=== PATIENT | female | born 1990 | race Caucasian/White ===

== ENCOUNTER 2020-11-18 21:08 | Emergency (ER) | payer OTHER, SELFPAY ==
[2020-11-18 21:13] VITALS: BP 125/73; PULSE 84; RESP 16; TEMP 36.6; O2SAT 99; BMI 34.7
--- NOTE | 2020-11-18 21:49 | ED_ITS ---
HPI - Psych General Chief Complaint: Psychiatric Symptoms Stated Complaint: crisis Time Seen by Provider: 11/18/20 21:15 Source: patient Mode of arrival: EMS History of Present Illness HPI Narrative: This is a 30-year-old female who denies any significant past medical history and states that she is unsure whether not she may have shot her son or her mother. She then goes on to say that her 's family is casting spells on her as well as having dreams that her son is sitting in a corner and just staring at her in a weird way and she states that her friend, Ermelinda, has been saying bad things about her on the Internet. She said ?I do not know if they shot her?. When asked for further clarification she says that her is her friend Ermelinda. She says that she sees ?shades? and says that she is hearing voices but denies suicidal thoughts. Related Data Home Medications Medication Instructions Recorded Confirmed No Known Home Meds 11/19/20 11/19/20 Allergies Allergy/AdvReac Type Severity Reaction Status Date / Time No Known Allergies Allergy Verified 11/19/20 05:14 Review of Systems Review of Systems: Pertinent positives and negatives in the HPI and 10 point review of systems is otherwise negative. PMFSH Past Medical History Source: nursing notes reviewed Social History Social History Advance Directives: No Advance Directives Information Provided: No Healthcare Proxy: No Guardian: No Patient : No Physical Exam Vital Signs: Vital Signs: Last Vital Signs Temp 97.8 F 11/18/20 21:13 Pulse 84 11/18/20 21:13 Resp 16 11/18/20 21:13 BP 125/73 11/18/20 21:13 Pulse Ox 99 11/18/20 21:13 Body Mass Index 34.7 VITAL SIGNS: Reviewed. GENERAL: Well developed, well nourished, in no acute distress. HEAD: Normocephalic/atraumatic EYES: PERRLA, EOMI OROPHARYNX: no oral lesions noted, posterior pharynx clear LUNGS: Normal breath sounds. No adventitious sounds or accessory muscle use. SpO2<99> CARDIOVASCULAR: Regular rate and rhythm without noted murmurs ABDOMEN: Soft, non-tender, non-distended with bowel sounds. MUSCULOSKELETAL: No tenderness, deformities, or effusions noted on gross inspection. EXTREMITIES: No cyanosis, clubbing or edema. SKIN: Inspection of the skin reveals no rashes NEUROLOGIC: Alert and oriented x 4. 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 Will medically evaluate as well as placing under Section 12. Signed patient out: need labs and eval. Reevaluation(s) Reevaluation #1: Patient placed in physician observation because the patient needed more time for labs/UA and evaluation for psych admission. At the time observation was started the patient's vital signs were stable, patient is alert and oriented, neuro: Nonfocal, CV RRR, lungs clear Time: 21:55 MDM - Psych Lab Data Labs: Lab Results 11/18/20 Range/Units 21:32 COVID-19 ([facility]) Negative (Negative) COVID-19 Clin Com See Note Discharge Plan Discharge Clinical Impression: Acute psychosis Prescriptions: No Action No Known Home Meds RF: 0
--- NOTE | 2020-11-18 21:51 | PC.NURSE ---
N referral completed via telephone by talking to [facility] bottling room worker pearl Verduczo at this time, awaiting phone call for ETA.
--- NOTE | 2020-11-18 22:04 | MHC.CARE ---
CARE team contacted [facility] crisis [phone] and spoke with phlebotomy supervisor Pierce re: pt who had been seen in [facility]'s ED on 11/16/2020 for insomnia and paranoia. Pierce reported that she had been evaluated by crisis and though she did present with psychotic features, she was oriented and apparently able to compose herself enough to be deemed safe for discharge. He reported that the plan for her was to discharge home with her sister and follow up with [facility] outpatient, and that her sister was encouraged to reach back out to [facility] crisis or have her return to the ED if her symptoms persist and/or worsen. It was not anticipated that the pt would come to [place] ED instead of [facility]. Pierce offered to fax a copy of the crisis eval for reference. Awaiting fax at this time. Pt was referred to [facility] for evaluation, no clinicians are available to assess pt until the morning. CARE team will assume responsibility for crisis evaluation. [facility] notified and will call [facility] [employer]. This keno writer/runner spoke with ED attending physician Dr. Lisa Fuentes. Identified significant concerns re: pt's mental status. Sect 12a signed and placed in pt's chart. Awaiting medical clearance to complete assessment.
[2020-11-18 22:24] LABS: COVID-19 Test Negative (Negative)
[2020-11-18] MEDS: OLANZapine 10 MG TABLET PO (23:00)
--- NOTE | 2020-11-18 23:42 | PC.NURSE ---
Patient attempted x 2 to barge out of ED POD door without any sense of of getting injured, patient is disorganized, thought blocking, non-verbal, provider notified/ordered Olanzapine 10 mg/administered as ordered/pending effect, patient was offered food, patient tried to push big chunk of chicken salad sandwich through her throat, staff intervened, patient is being currently monitor on close observation for the safety, will continue to monitor.
--- NOTE | 2020-11-19 05:39 | PC.NURSE ---
Patient slept through the night, + effect to Olanzapine, patient needs to be observed closely due to paranoid ideation and delusion, patient indulges in unsafe behavior, per [facility] REPAIRER assessment patient is not any medication, VSS, pending lab order, patient was unable to provide urine sample, patient got assessed by Care Team, patient's disposition is section 12 inpatient bed search, will continue to monitor.
[2020-11-19 07:11] LABS: Glucose Urine UA NEG (NEG); Leukocyte Esterase Urine NEG (NEG); Nitrite Urine NEG (NEG); PH 6.5 (5.0-8.0); UACC Culture Trigger NO; Urine Blood TRACE (NEG); Urine Ketones NEG (NEG); Urine Protein NEG (NEG-TRACE)
--- NOTE | 2020-11-19 07:15 | PC.NURSE ---
patient appears to remain at rest at present, breaths are even and unlabored. patient appears in no distress
[2020-11-19 07:17] LABS: UPreg QC Valid YES; Urine Pregnancy NEGATIVE (NEGATIVE)
[2020-11-19 07:18] LABS: Appearance Urine CLEAR; Color Urine YELLOW
[2020-11-19 07:24] LABS: Bacteria Urine TRACE /LPF; Mucus Urine TRACE /LPF; RBC Urine 0-2 /HPF (0); Squamous Epithelial Cell Urine TRACE /LPF; WBC Urine 0-2 /HPF (0-4)
[2020-11-19 07:45] VITALS: BP 121/69; PULSE 98; RESP 18; O2SAT 99
[2020-11-19 07:49] LABS: Amphetamine Screen Urine Not Detected (Not Detect); Barbiturates, Urine Not Detected (Not Detect); Benzodiazepines Screen Urine Not Detected (Not Detect); Cannabinoid Screen Urine Not Detected (Not Detect); Cocaine Screen Urine Not Detected (Not Detect); Opiate Screen Urine Not Detected (Not Detect); Phencyclidine Screen Urine Not Detected (Not Detect)
[2020-11-19 07:49] LABS: MANUAL DIFF FLAG NO
[2020-11-19 07:58] LABS: Basophils Percent Auto 0.5 % (0-2); Eosinophils Absolute Auto 0.2 X10*3/uL (0.0-0.4); Eosinophils Percent Auto 2.3 % (0-4); Hematocrit 36.1 % (37-47); Hemoglobin 11.6 g/dl (12.0-16.0); Imm Gran Abs Auto 0.04 X10*3/uL (0.00-0.03); Imm Gran Pct Auto 0.5 % (0.0-0.4); Lymphocytes Absolute Auto 3.1 X10*3/uL (1.2-4.9); Lymphocytes Percent Auto 40.7 % (20-40); Mean Corpuscular HGB Conc 32.1 g/dl (31.0-35.0); Mean Corpuscular Hemoglobin 26.7 pg (27.0-33.0); Mean Platelet Volume 9.9 fL (9.4-12.3); Monocytes Absolute Auto 0.5 X10*3/uL (0.1-1.2); Monocytes Percent Auto 7.1 % (2-11); Neutrophils Absolute Auto 3.7 X10*3/uL (2.0-8.3); Neutrophils Percent Auto 48.9 % (45-73); Platelet Count 296 X10*3/uL (160-400); Red Blood Count 4.35 X10*6/uL (4.20-5.50); Red Cell Distribution Width 15.6 % (11.0-16.0); White Blood Count 7.5 X10*3/uL (4.8-10.8)
[2020-11-19 08:10] LABS: Ethanol < 10 mg/dL
[2020-11-19 08:14] LABS: Alanine Aminotransferase 9 U/L (0-31); Alkaline Phosphatase 55 U/L (39-117); Anion Gap 15 (12-20); Aspartate Amino Transferase 13 U/L (5-31); Bilirubin Total 0.2 mg/dL (0.0-1.0); Blood Urea Nitrogen 7 mg/dL (9-16); Calcium 9.5 mg/dL (8.4-10.2); Carbon Dioxide 24 mmol/L (22-29); Chloride 105 mmol/L (96-108); Creatinine Clr Calc Pharmacy 116.9; Estimated Glomerular Filt Rate > 60; Glucose Random 96 mg/dL (60-115); Potassium 3.7 mmol/L (3.3-5.1); Sodium 140 mmol/L (135-145); Total Protein 7.4 g/dL (6.5-8.0)
== END 2020-11-19 12:12 ==
PROVIDERS: Emergency Provider Student in an Organized Health Care Education/Training Program
DX: F23 Brief psychotic disorder (principal); F33.1 Major depressive disorder, recurrent, moderate; Z20.822 Contact with and (suspected) exposure to COVID-19; Z79.899 Other long term (current) drug therapy
CPT/HCPCS: 36415; 80053; 80307; 81001; 81003; 81025; 82077; 85025; 87635; 99285